=== PATIENT | male | born 1980 | race Caucasian/White ===

== ENCOUNTER 2017-06-24 18:41 | Emergency (ER) | payer OTHER, SELFPAY ==
[2017-06-24] MEDS ORDERED: Adacel (T-DAP) 0.5 ML VIAL ONE (19:31)
== END 2017-06-24 19:44 | disposition home or self-care (01) ==
LOC: SCSER 18:41
DX: S61.211A Laceration without foreign body of left index finger without damage to nail, initial encounter (principal); J45.909 Unspecified asthma, uncomplicated; I10 Essential (primary) hypertension; F32.9 Major depressive disorder, single episode, unspecified; Z79.899 Other long term (current) drug therapy; W45.8XXA Other foreign body or object entering through skin, initial encounter
CPT/HCPCS: 12001; 90471; 90715